=== PATIENT | female | born 1935 | race African-American/Black ===

== ENCOUNTER 2017-03-10 17:29 | Inpatient (IN) | payer MEDICARE ==
[~2017-03-10] VITALS: Ht 167.6 cm; Wt 77.1 kg
[~2017-03-10 17:29] MED LIST: ATOR20TA65 PO; CILO100T PO; DICL75TA5 PO; HYDR25TA PO; LEVO25TA7 PO; LOSA25TA12 PO; METF500T4 PO
[2017-03-10] MEDS ORDERED: ASPI-1159 PO (18:41)
[2017-03-10] MEDS ORDERED: GABA-531 PO (18:41)
[2017-03-10] MEDS ORDERED: CHOL20004 PO (18:41)
[2017-03-10] MEDS ORDERED: GLIM2TAB2 PO (18:41)
[2017-03-10] MEDS ORDERED: ACET1TAB12 PO (18:41)
[2017-03-10] MEDS ORDERED: SEVE800T8 PO (18:41)
[2017-03-10] MEDS ORDERED: CLOP75TA33 PO (18:41)
[2017-03-10] MEDS ORDERED: ACETAMINOPHEN WITH CODEINE 300/30MG TABLET PO PRN (21:00)
[2017-03-10] MEDS ORDERED: DEXTROSE 50% WATER 50ML SYRINGE IV PRN (21:15)
[2017-03-10] MEDS ORDERED: MORPHINE SULFATE 4 MG/ML CPJ (NOT FOR IM USE) IV NR (22:00)
[2017-03-10 22:01] LABS: BASOPHILS % 0.4 % (0.0-2.0); EOSINOPHILS % 3.2 % (0.0-5.0); HEMATOCRIT. 26.3 % (36.0-48.0); HEMOGLOBIN. 8.8 g/dL (12.0-16.0); LYMPHOCYTES % 11.5 % (20.0-50.0); MEAN CORPUSCULAR VOLUME 86.8 fL (81.0-99.0); MEAN PLATELET VOLUME 9.1 fl (7.4-10.4); MONOCYTES % 7.5 % (2.0-8.0); NEUTROPHILS % 77.4 % (40.0-76.0); PLATELET 184 x1000/uL (130-400); RED BLOOD CELL COUNT 3.03 mill/uL (4.2-5.4); RED CELL DISTRIBUTION WIDTH 12.6 % (11.6-14.6)
[2017-03-10 22:14] LABS: CARBON DIOXIDE 22 mEq/L (21-32); CHLORIDE 105 mEq/L (98-107)
[2017-03-10] MEDS: ATORVASTATIN CALCIUM 20MG TABLET PO SCH (23:01)
[2017-03-11] MEDS: BLOOD SUGAR DIAGNOSTIC STRIP TEST SCH ×4 (06:07→21:00)
[2017-03-11 06:16] LABS: CHLORIDE 107 mEq/L (98-107)
[2017-03-11] MEDS ORDERED: BISACODYL 5MG TABLET PO PRN (06:30)
[2017-03-11] MEDS ORDERED: DOCUSATE SODIUM 250MG CAPSULE PO PRN (06:30)
[2017-03-11 06:34] LABS: CARBON DIOXIDE 19 mEq/L (21-32)
[2017-03-11 07:00] LABS: BASOPHILS % 0.6 % (0.0-2.0); EOSINOPHILS % 4.6 % (0.0-5.0); HEMATOCRIT. 26.5 % (36.0-48.0); HEMOGLOBIN. 8.7 g/dL (12.0-16.0); LYMPHOCYTES % 11.3 % (20.0-50.0); MEAN CORPUSCULAR HEMOGLOBIN 28.8 pg (28.0-32.0); MEAN CORPUSCULAR VOLUME 87.7 fL (81.0-99.0); MEAN PLATELET VOLUME 9.2 fl (7.4-10.4); MONOCYTES % 7.4 % (2.0-8.0); NEUTROPHILS % 76.1 % (40.0-76.0); PLATELET 176 x1000/uL (130-400); RED BLOOD CELL COUNT 3.02 mill/uL (4.2-5.4); RED CELL DISTRIBUTION WIDTH 12.5 % (11.6-14.6)
[2017-03-11] MEDS: INSULIN LISPRO 100 UNITS/ML SUBCUT SCH ×4 (07:22→21:00)
[2017-03-11] MEDS: CHOLECALCIFEROL (D3) 1000 UNIT TABLET PO SCH (08:30)
[2017-03-11] MEDS ORDERED: CLOPIDOGREL 75MG TABLET PO SCH (08:30)
[2017-03-11] MEDS: LOSARTAN POTASSIUM 25 MG TABLET PO SCH (08:30)
[2017-03-11] MEDS: GABAPENTIN 300MG CAPSULE PO SCH ×2 (08:30→16:21)
[2017-03-11] MEDS: SEVELAMER CARBONATE 800 MG TABLET PO SCH ×3 (08:30→19:13)
[2017-03-11] MEDS: ASPIRIN 81MG EC TABLET PO SCH (08:30)
[2017-03-11] MEDS ORDERED: CILOSTAZOL 100MG TABLET PO SCH (09:00)
[2017-03-11] MEDS ORDERED: LEVOTHYROXINE SODIUM 25MCG TABLET PO SCH (09:00)
[2017-03-11] MEDS ORDERED: MEDICATION NOT ON FORMULARY EA (Cholecalciferol (Vitamin D) 2,000 UNIT) PO SCH (09:00)
[2017-03-11] MEDS ORDERED: DOCUSATE SODIUM 250MG CAPSULE PO NR (16:00)
[2017-03-11] MEDS: ATORVASTATIN CALCIUM 20MG TABLET PO SCH (22:15)
[2017-03-12 05:39] LABS: BASOPHILS % 0.4 % (0.0-2.0); EOSINOPHILS % 5.2 % (0.0-5.0); HEMATOCRIT. 25.4 % (36.0-48.0); HEMOGLOBIN. 8.4 g/dL (12.0-16.0); MEAN CORPUSCULAR HEMOGLOBIN 28.6 pg (28.0-32.0); MEAN CORPUSCULAR VOLUME 86.6 fL (81.0-99.0); MEAN PLATELET VOLUME 8.9 fl (7.4-10.4); NEUTROPHILS % 77.4 % (40.0-76.0); PLATELET 178 x1000/uL (130-400); RED BLOOD CELL COUNT 2.94 mill/uL (4.2-5.4); RED CELL DISTRIBUTION WIDTH 12.5 % (11.6-14.6)
[2017-03-12 06:03] LABS: PHOSPHORUS 5.4 mg/dL (2.5-4.9)
[2017-03-12] MEDS: BLOOD SUGAR DIAGNOSTIC STRIP TEST SCH ×5 (07:40→20:37)
[2017-03-12] MEDS ORDERED: FENTANYL CITRATE/PF 50MCG/ML 2ML VIAL ONE (07:53)
[2017-03-12] MEDS ORDERED: MIDAZOLAM HCL 2 MG/2 ML VIAL ONE (07:53)
[2017-03-12] MEDS ORDERED: BUPIVACAINE HCL/PF 0.5% (5MG/ML) 10ML ONE (07:56)
[2017-03-12] MEDS ORDERED: LIDOCAINE HCL 1% 20ML VIAL (Pyxis) INJ ONE ×2 (07:57→08:07)
[2017-03-12] MEDS ORDERED: ONDANSETRON HCL 4MG/2ML VIAL ONE (08:07)
[2017-03-12] MEDS ORDERED: SODIUM CHLORIDE 0.9% 10ML VIAL ONE (08:07)
[2017-03-12] MEDS ORDERED: CEFAZOLIN SODIUM 1000MG/VIAL ONE (08:07)
[2017-03-12] MEDS ORDERED: PROPOFOL 200MG/20ML VIAL IV ONE (08:07)
[2017-03-12] MEDS ORDERED: DEXAMETHASONE 4MG/ML 1ML VIAL ONE (08:07)
[2017-03-12] MEDS: INSULIN LISPRO 100 UNITS/ML SUBCUT SCH ×4 (08:10→20:36)
[2017-03-12] MEDS: SEVELAMER CARBONATE 800 MG TABLET PO SCH ×3 (08:10→15:32)
[2017-03-12] MEDS: ASPIRIN 81MG EC TABLET PO SCH (09:00)
[2017-03-12] MEDS ORDERED: HYDROMORPHONE HCL/PF 2MG/ML CPJ IV PRN (09:00)
[2017-03-12] MEDS ORDERED: ONDANSETRON HCL 4MG/2ML VIAL IV PRN (09:00)
[2017-03-12] MEDS: DOCUSATE SODIUM 250MG CAPSULE PO SCH ×2 (09:00→15:29)
[2017-03-12] MEDS ORDERED: MEPERIDINE HCL/PF 25MG/ML CPJ IV PRN (09:00)
[2017-03-12] MEDS ORDERED: LABETALOL HCL 20MG/4ML CARPUJECT IV PRN (09:00)
[2017-03-12] MEDS: LOSARTAN POTASSIUM 25 MG TABLET PO SCH (11:33)
[2017-03-12] MEDS: CHOLECALCIFEROL (D3) 1000 UNIT TABLET PO SCH (11:34)
[2017-03-12] MEDS: GABAPENTIN 300MG CAPSULE PO SCH ×2 (11:35→15:28)
[2017-03-12 11:44] LABS: BG BASE EXCESS -8.4 mmol/L (-2.0-2.0); BG CARBOXYHEMOGLOBIN 0.3 % (0.5-1.5); BG DEOXYHEMOGLOBIN 2.9 % (0.0-5.0); BG FRACTION INSPIRED OXYGEN 28; BG HCO3 ACT 17.5 mmol/L (22.0-26.0); BG METHEMOGLOBIN 0.2 % (0.0-1.5); BG OXYGEN SATURATION 97.1 % (92.0-98.5); BG OXYHEMOGLOBIN 96.6 % (94.0-97.0); BG PCO2 37.3 mmHg (35.0-45.0); BG PH 7.289 (7.350-7.450); BG PO2 108.9 mmHg (75.0-100.0); BG SAMPLE SITE LEFT RADIAL; BG TOTAL HEMOGLOBIN 9.9 g/dL (12.0-18.0); BG VENT MODE NASAL CANNULA
[2017-03-12] MEDS: SODIUM BICARBONATE 650 MG TABLET PO SCH ×2 (15:29→17:00)
[2017-03-12] MEDS: BISACODYL 5MG TABLET PO PRN (15:29)
[2017-03-12] MEDS: ATORVASTATIN CALCIUM 20MG TABLET PO SCH (20:25)
[2017-03-13] MEDS: BLOOD SUGAR DIAGNOSTIC STRIP TEST SCH ×4 (06:09→21:16)
[2017-03-13 06:11] LABS: HEMATOCRIT. 25.5 % (36.0-48.0); HEMOGLOBIN. 8.3 g/dL (12.0-16.0); MEAN CORPUSCULAR HEMOGLOBIN 28.3 pg (28.0-32.0); MEAN CORPUSCULAR VOLUME 86.9 fL (81.0-99.0); MEAN PLATELET VOLUME 8.8 fl (7.4-10.4); PLATELET 186 x1000/uL (130-400); RED BLOOD CELL COUNT 2.93 mill/uL (4.2-5.4); RED CELL DISTRIBUTION WIDTH 12.7 % (11.6-14.6)
[2017-03-13 06:30] LABS: PHOSPHORUS 4.5 mg/dL (2.5-4.9)
[2017-03-13 07:58] LABS: FERRITIN 186 ng/mL (10-291)
[2017-03-13] MEDS: INSULIN LISPRO 100 UNITS/ML SUBCUT SCH ×4 (08:10→21:00)
[2017-03-13] MEDS: ASPIRIN 81MG EC TABLET PO SCH (08:49)
[2017-03-13] MEDS: BISACODYL 5MG TABLET PO PRN (08:49)
[2017-03-13] MEDS: SODIUM BICARBONATE 650 MG TABLET PO SCH ×2 (08:49→17:08)
[2017-03-13] MEDS: DOCUSATE SODIUM 250MG CAPSULE PO SCH (08:50)
[2017-03-13] MEDS: GABAPENTIN 300MG CAPSULE PO SCH ×2 (08:50→17:08)
[2017-03-13] MEDS: LOSARTAN POTASSIUM 25 MG TABLET PO SCH (08:50)
[2017-03-13] MEDS: CHOLECALCIFEROL (D3) 1000 UNIT TABLET PO SCH (08:53)
[2017-03-13] MEDS: SEVELAMER CARBONATE 800 MG TABLET PO SCH ×3 (08:53→17:08)
[2017-03-13 10:03] LABS: VITAMIN B12 SERUM 1206 pg/mL (211-911)
[2017-03-13] MEDS ORDERED: SODIUM POLYSTYRENE SULFONATE 15 G/60 ML BOT PO SCH (14:00)
[2017-03-13] MEDS ORDERED: EPOETIN ALFA 10000UNITS/ML VIAL SUBCUT SCH (21:00)
[2017-03-13] MEDS: ATORVASTATIN CALCIUM 20MG TABLET PO SCH (21:16)
[2017-03-14 06:05] LABS: BASOPHILS % 0.6 % (0.0-2.0); HEMATOCRIT. 25.5 % (36.0-48.0); HEMOGLOBIN. 8.4 g/dL (12.0-16.0); LYMPHOCYTES % 10.4 % (20.0-50.0); MEAN CORPUSCULAR HEMOGLOBIN 28.6 pg (28.0-32.0); MEAN CORPUSCULAR VOLUME 86.7 fL (81.0-99.0); MEAN PLATELET VOLUME 8.7 fl (7.4-10.4); MONOCYTES % 7.1 % (2.0-8.0); NEUTROPHILS % 78.9 % (40.0-76.0); PLATELET 199 x1000/uL (130-400); RED BLOOD CELL COUNT 2.94 mill/uL (4.2-5.4); RED CELL DISTRIBUTION WIDTH 12.4 % (11.6-14.6)
[2017-03-14 06:39] LABS: PHOSPHORUS 3.6 mg/dL (2.5-4.9)
[2017-03-14] MEDS: BLOOD SUGAR DIAGNOSTIC STRIP TEST SCH ×3 (07:40→17:51)
[2017-03-14] MEDS: INSULIN LISPRO 100 UNITS/ML SUBCUT SCH ×3 (08:10→17:51)
[2017-03-14 08:24] LABS: PLATELET ESTIMATE NORMAL
[2017-03-14] MEDS: CHOLECALCIFEROL (D3) 1000 UNIT TABLET PO SCH (09:02)
[2017-03-14] MEDS: ASPIRIN 81MG EC TABLET PO SCH (09:02)
[2017-03-14] MEDS: LOSARTAN POTASSIUM 25 MG TABLET PO SCH (09:02)
[2017-03-14] MEDS: GABAPENTIN 300MG CAPSULE PO SCH ×2 (09:02→17:50)
[2017-03-14] MEDS: SEVELAMER CARBONATE 800 MG TABLET PO SCH ×3 (09:02→17:50)
[2017-03-14] MEDS: DOCUSATE SODIUM 250MG CAPSULE PO SCH (09:02)
[2017-03-14] MEDS: SODIUM BICARBONATE 650 MG TABLET PO SCH ×2 (09:03→17:50)
[2017-03-14] MEDS: ATORVASTATIN CALCIUM 20MG TABLET PO SCH (09:03)
[2017-03-14] MEDS ORDERED: LACTULOSE 20G/30ML UDC PO NR (13:30)
[2017-03-14] MEDS ORDERED: LACTULOSE 20G/30ML UDC PO PRN (13:30)
[2017-03-14] MEDS ORDERED: NA PHOS,M-B/NA PHOS,DI-BA ENEMA 118ML PR NR (17:30)
[2017-03-14 20:13] VITALS: BP 152/62
== END 2017-03-14 21:08 | disposition home health service (06) | DRG 252 ==
LOC: 7WST 17:29
PROVIDERS: ADMIT Internal Medicine Critical Care Medicine; ATTEND Internal Medicine Critical Care Medicine
PROC: 03WY0JZ Revision of Synthetic Substitute in Upper Artery, Open Approach (ICD-10-PCS; 2017-03-07)
PROC: 03V Upper Arteries, Restriction (ICD-10-PCS; principal; 2017-03-12 07:32)
DX: T82.898A Other specified complication of vascular prosthetic devices, implants and grafts, initial encounter (principal); G93.40 Encephalopathy, unspecified; N17.9 Acute kidney failure, unspecified; I13.2 Hypertensive heart and chronic kidney disease with heart failure and with stage 5 chronic kidney disease, or end stage renal disease; N18.6 End stage renal disease; E87.2 Acidosis; I42.9 Cardiomyopathy, unspecified; D64.9 Anemia, unspecified; E03.9 Hypothyroidism, unspecified; E11.22 Type 2 diabetes mellitus with diabetic chronic kidney disease; E83.39 Other disorders of phosphorus metabolism; E87.5 Hyperkalemia; I49.5 Sick sinus syndrome; I50.9 Heart failure, unspecified; E11.51 Type 2 diabetes mellitus with diabetic peripheral angiopathy without gangrene; K59.00 Constipation, unspecified; K80.20 Calculus of gallbladder without cholecystitis without obstruction; M48.06 Spinal stenosis, lumbar region; H26.9 Unspecified cataract; E78.5 Hyperlipidemia, unspecified; M46.46 Discitis, unspecified, lumbar region; Y84.1 Kidney dialysis as the cause of abnormal reaction of the patient, or of later complication, without mention of misadventure at the time of the procedure; Z79.82 Long term (current) use of aspirin; Z79.84 Long term (current) use of oral hypoglycemic drugs; Z79.899 Other long term (current) drug therapy; Y92.89 Other specified places as the place of occurrence of the external cause
CPT/HCPCS: 36415; 36600; 70450; 71010; 76770; 80048; 80053; 82375; 82607; 82728; 82805; 82962; 83540; 83550; 83735; 83880; 84100; 84443; 85025; 97162; 97166; 97168; 97535; A4216; A6261; J0690; J0885; J1100; J1815; J2250; J2270; J2405; J2704; J3010; J3490

== ENCOUNTER 2017-03-16 16:47 | Emergency (ER) | payer MEDICARE ==
[~2017-03-16] VITALS: Ht 172.7 cm; Wt 91.0 kg
[~2017-03-16 16:47] MED LIST changes: +ACET1TAB12 PO; +ASPI-1159 PO; +CHOL20004 PO; +CLOP75TA33 PO; -DICL75TA5 PO; +GABA-531 PO; +GLIM2TAB2 PO; -HYDR25TA PO; -LEVO25TA7 PO; -METF500T4 PO; +SEVE800T8 PO
[2017-03-16 19:16] LABS: BASOPHILS % 0.3 % (0.0-2.0); EOSINOPHILS % 0.6 % (0.0-5.0); HEMATOCRIT. 28.8 % (36.0-48.0); HEMOGLOBIN. 9.6 g/dL (12.0-16.0); LYMPHOCYTES % 7.2 % (20.0-50.0); MEAN CORPUSCULAR HEMOGLOBIN 28.9 pg (28.0-32.0); MEAN CORPUSCULAR VOLUME 86.9 fL (81.0-99.0); MEAN PLATELET VOLUME 8.1 fl (7.4-10.4); MONOCYTES % 5.4 % (2.0-8.0); NEUTROPHILS % 86.5 % (40.0-76.0); PLATELET 246 x1000/uL (130-400); RED BLOOD CELL COUNT 3.32 mill/uL (4.2-5.4); RED CELL DISTRIBUTION WIDTH 12.5 % (11.6-14.6)
[2017-03-16 19:20] LABS: INR 1.1; PROTHROMBIN TIME 11.5 sec
[2017-03-16 19:32] LABS: CARBON DIOXIDE 20 mEq/L (21-32); CHLORIDE 111 mEq/L (98-107); TROPONIN I < 0.02 ng/mL (0.00-0.04)
[2017-03-16] MEDS ORDERED: ONDANSETRON HCL 4MG/2ML VIAL IV STA (20:26)
[2017-03-16] MEDS ORDERED: MORPHINE SULFATE 4 MG/ML CPJ (NOT FOR IM USE) IV STA (20:26)
[2017-03-16 22:17] LABS: GLUCOSE URINE NEGATIVE (NEGATIVE); KETONES URINE NEGATIVE (NEGATIVE); LEUKOCYTE ESTERASE URINE 1+ (NEGATIVE); NITRITE URINE NEGATIVE (NEGATIVE); OCCULT BLOOD URINE NEGATIVE (NEGATIVE); PH URINE 5.5 (4.5-8.0); PROTEIN URINE NEGATIVE (NEGATIVE); SPECIFIC GRAVITY URINE 1.011 (1.005-1.030); UROBILINOGEN URINE 0.2 E.U./dL (0.2-1.0)
[2017-03-16 22:19] LABS: CLARITY URINE CLEAR (CLEAR); COLOR URINE YELLOW (YELLOW)
[2017-03-16 23:15] VITALS: BP 150/60
== END 2017-03-16 23:29 | disposition home or self-care (01) ==
LOC: ER 20:43
DX: N39.0 Urinary tract infection, site not specified (principal); I12.9 Hypertensive chronic kidney disease with stage 1 through stage 4 chronic kidney disease, or unspecified chronic kidney disease; D64.9 Anemia, unspecified; N18.9 Chronic kidney disease, unspecified; K59.00 Constipation, unspecified; E11.22 Type 2 diabetes mellitus with diabetic chronic kidney disease; Z79.82 Long term (current) use of aspirin; Z98.890 Other specified postprocedural states; Z95.0 Presence of cardiac pacemaker
CPT/HCPCS: 36415; 51702; 71010; 74176; 80053; 81001; 83605; 83690; 84484; 85025; 85610; 93005; 96374; 96375; 99285; J2270; J2405; A4315

== ENCOUNTER → 2021-07-13 | Day surgery (SDC) | payer MEDICARE ==
[~2021-07-13] MED LIST changes: -ASPI-1159 PO; +ASPI-1497 PO; +FENTANYL CITRATE/PF 50MCG/ML 2ML VIAL ONE; -GABA-531 PO; +GABA-532 PO; -GLIM2TAB2 PO; +GLIM2TAB30 PO; +LEVO50TA8 MT; -LOSA25TA12 PO; +LOSA25TA26 PO; +MIDAZOLAM HCL 2 MG/2 ML VIAL ONE; +THIA50TA10 PO
[2021-07-13 08:49] LABS: BASOPHILS % 1.1 % (0.0-2.0); EOSINOPHILS % 10.8 % (0.0-5.0); HEMATOCRIT. 30.4 % (36.0-48.0); HEMOGLOBIN. 10.2 g/dL (12.0-16.0); LYMPHOCYTES % 9.7 % (20.0-50.0); MEAN CORPUSCULAR HEMOGLOBIN 31.1 pg (28.0-32.0); MEAN CORPUSCULAR VOLUME 92.3 fL (81.0-99.0); MEAN PLATELET VOLUME 8.5 fl (7.4-10.4); MONOCYTES % 5.8 % (2.0-8.0); NEUTROPHILS % 72.6 % (40.0-76.0); PLATELET 216 x1000/uL (130-400); RED BLOOD CELL COUNT 3.29 mill/uL (4.2-5.4)
== END | disposition home or self-care (01) ==
LOC: CCL 07:18
PROVIDERS: ATTEND Internal Medicine
DX: I08.3 Combined rheumatic disorders of mitral, aortic and tricuspid valves (principal); I12.0 Hypertensive chronic kidney disease with stage 5 chronic kidney disease or end stage renal disease; N18.6 End stage renal disease; I48.91 Unspecified atrial fibrillation; I73.9 Peripheral vascular disease, unspecified; Z79.82 Long term (current) use of aspirin; Z79.899 Other long term (current) drug therapy; Z98.890 Other specified postprocedural states; Z20.822 Contact with and (suspected) exposure to COVID-19
CPT/HCPCS: 36415; 80048; 85025; 93312; 99152; J2250; J3010; G0500

== ENCOUNTER → 2022-09-08 | Outpatient (CLI) | payer MEDICARE ==
[~2022-09-08] MED LIST changes: -ACET1TAB12 PO; -CHOL20004 PO; -CILO100T PO; +CILO100T3 PO; -CLOP75TA33 PO; -FENTANYL CITRATE/PF 50MCG/ML 2ML VIAL ONE; -GLIM2TAB30 PO; -MIDAZOLAM HCL 2 MG/2 ML VIAL ONE
== END | disposition home or self-care (01) ==
LOC: RAD 13:19
PROVIDERS: ATTEND Internal Medicine Critical Care Medicine
DX: J44.9 Chronic obstructive pulmonary disease, unspecified (principal); N18.9 Chronic kidney disease, unspecified; Z95.0 Presence of cardiac pacemaker
CPT/HCPCS: 71046

== ENCOUNTER → 2023-06-01 | Outpatient (CLI) | payer MEDICARE ==
[2023-06-01 15:49] LABS: BASOPHILS % 1.5 % (0.0-2.0); EOSINOPHILS % 7.2 % (0.0-5.0); HEMATOCRIT. 29.5 % (36.0-48.0); LYMPHOCYTES % 14.2 % (20.0-50.0); MEAN CORPUSCULAR HGB CONC 33.8 g/dL (31.0-37.0); MEAN CORPUSCULAR VOLUME 88.7 fL (81.0-99.0); MEAN PLATELET VOLUME 8.3 fl (7.4-10.4); MONOCYTES % 7.3 % (2.0-8.0); NEUTROPHILS % 69.8 % (40.0-76.0); PLATELET 179 x1000/uL (130-400); RED BLOOD CELL COUNT 3.33 mill/uL (4.2-5.4); RED CELL DISTRIBUTION WIDTH 15.6 % (11.6-14.6); WHITE BLOOD COUNT 6.6 x1000/uL (4.5-11.0)
[2023-06-01 16:07] LABS: CREATININE 5.6 mg/dL (0.6-1.3)
== END | disposition home or self-care (01) ==
LOC: LAB 15:13
PROVIDERS: ATTEND Internal Medicine Critical Care Medicine
DX: D50.9 Iron deficiency anemia, unspecified (principal)
CPT/HCPCS: 36415; 80048; 85025